=== PATIENT | male | born 1950 | race Caucasian/White ===

== ENCOUNTER 2016-05-30 15:39 | Emergency (ER) | payer OTHER ==
[2016-05-30] MEDS ORDERED: Acetaminophen TAB* 325 MG PO ONE (16:32)
[2016-05-30 16:51] LABS: Hematocrit 40 % (42-52); Hemoglobin 13.6 g/dl (14.0-18.0); Mean Corpuscular HGB Conc 34 g/dl (31-36); Mean Corpuscular Hemoglobin 30 pg (27-31); Mean Corpuscular Volume 90 fL (80-94); Mean Platelet Volume 8 um3 (7.4-10.4); Red Blood Count 4.49 10^6/ul (4.0-5.4); Red Cell Distribution Width 15 % (10.5-15); White Blood Count 6.3 10^3/ul (3.5-10.8)
[2016-05-30] MEDS: NS 0.9% 1000 ML* 3,000 ML IV ONE (16:55)
--- NOTE | 2016-05-30 17:03 | RAD ---
Indication: Cough, fever. 2 views of the chest including dual energy PA views demonstrates no mediastinal shift. Heart is of normal size and configuration. Lung hart are clear. When compared to previous exam of February 16, 2016 no significant change is noted. IMPRESSION: No active cardiopulmonary disease is identified.
[2016-05-30 17:13] LABS: Albumin 4.6 g/dL (3.2-5.2); BUN/Creatinine Ratio 14.9 (8-20); Calcium 9.2 mg/dL (8.6-10.3); EGFR African American 77.6 (>60); EGFR Non-African American 60.4 (>60); Globulin 2.8 g/dL (2-4); Potassium 3.9 mmol/L (3.5-5.0); Total Bilirubin 0.6 mg/dL (0.2-1.0); Total Protein 7.4 g/dL (6.4-8.9)
[2016-05-30 17:15] LABS: Troponin I 0.01 ng/mL (<0.04)
[2016-05-30 17:35] LABS: C Reactive Protein 51.58 mg/L (< 5.00)
[2016-05-30] MEDS ORDERED: Oseltamivir CAP* 75 MG PO ONE ×2 (18:04→18:05)
--- NOTE | 2016-05-30 18:13 | ED ---
Yudy Colunga Michael, scribed for Genaro Miller MD on 05/30/16 at 1638 . HPI Febrile Illness - HPI Summary HPI Summary: 65 y/o male comes to the ED presenting with a 101.3 fever that started one day ago at 1200. The fever gradually started and has been worsening since. The pt reports that Tylenol PM does not alleviate the fever. He notes the highest temperature was 102 and his last dose of Tylenol was at 0800. He also c/o a productive cough with green/yellow sputum, chills, decreased appetite, lower back pain, myalgia, and arthralgia. The pt denies rash, n/v/d, sore throat, neck pain, dysuria, sinus discomfort, diaphoresis, flank pain, and abd pain. The PMHx is significant for stage for lymphoma. He currently is not receiving radiation or chemotherapy. The pt did have Mohs surgery on the right side of his nose on 05/27/16. Today the wound was not purulent per patient. - History of Current Complaint Chief Complaint: EDFever Time Seen by Provider: 05/30/16 16:14 Hx Obtained From: Patient, Medical Records Onset/Duration: Started Days Ago, Still Present Time of Onset: 12:00 Timing: Constant Temperature: 101.3 F Initial Severity: Moderate Current Severity: Moderate Pain Intensity: 7 Pain Scale Used: 0-10 Numeric Aggravating Factors: Unknown Alleviating Factors: Nothing Associated Signs and Symptoms: Negative - rash, n/v/d, sore throat, neck pain, dysuria, sinus discomfort, diaphoresis, flank pain, and abd pain., Chills, Joint Pain, Myalgia, Other: - back pain. productive cough. decreased appetite. - Additional Pertinent History Primary Care Physician: [id number] - Allergy/Home Medications Allergies/Adverse Reactions: Allergies Allergy/AdvReac Type Severity Reaction Status Date / Time No Known Allergies Allergy Verified 05/30/16 15:45 PMH/Surg Hx/FS Hx/Imm Hx Endocrine/Hematology History: Reports: Other Endocrine/Hematological Disorders - Non-Hodgkins Lymphoma GI History: Reports: Other GI Disorders - Intestinal tumor, bowel resection Musculoskeletal History: Reports: Hx Arthritis - Rheumatoid arthritis Sensory History: Reports: Hx Contacts or Glasses Opthamlomology History: Reports: Hx Contacts or Glasses - Cancer History Cancer Type, Location and Year: Non-Hodgkins lymphoma Hx Chemotherapy: Yes - 2003-08 Hx Radiation Therapy: Yes - 2003-08 - Surgical History Surgery Procedure, Year, and Place: Bowel resection in 2002 Infectious Disease History: No Infectious Disease History: Denies: Traveled Outside the [place] in Last 30 Days - Family History Known Family History: Positive: Diabetes - mother Negative: Cardiac Disease - Social History Occupation: Employed Full-time Lives: With Family Alcohol Use: Occasionally Substance Use Type: Reports: None Smoking Status (MU): Former Smoker Have You Smoked in the Last Year: No Review of Systems Positive: Fever, Chills. Negative: Skin Diaphoresis Negative: Sore Throat Positive: Cough Positive: Other - decreased appetite. Negative: Abdominal Pain, Vomiting, Diarrhea, Nausea Negative: dysuria, flank pain Positive: Arthralgia, Myalgia Negative: Rash All Other Systems Reviewed And Are Negative: Yes Physical Exam - Summary Physical Exam Summary: The patient is well-nourished in no acute distress and in no acute pain. The skin is warm and dry and skin color reflects adequate perfusion. Good skin turgor. HEENT: The head is normocephalic and atraumatic. The pupils are equal and reactive. The conjunctivae are clear and without drainage. Nares are patent and without drainage. Mouth reveals dry mucous membranes and the throat is without erythema and exudate. The external ears are intact. The ear canals are patent and without drainage. The tympanic membranes are intact. Neck is supple with full range of motion and non-tender. There are no carotid bruits. There is no neck vein distension. Respiratory: Chest is non-tender. Mild rales in bases with more on the right. Cardiovascular: Heart is regular rate and rhythm. There is no murmur or rub auscultated. There is no peripheral edema and pulses are symmetrical and equal. Abdomen: The abdomen is soft and non-tender. There are normal bowel sounds heard in all four quadrants and there is no organomegaly palpated. Musculoskeletal: There is no back pain noted. Extremities are non-tender with full range of motion. There is good capillary refill. There is no peripheral edema or calf tenderness elicited. Neurological: Patient is alert and oriented to person, place and time. The patient has symmetrical motor strength in all four extremities. Psychiatric: The patient has an appropriate affect and does not exhibit any anxiety or depression. Triage Information Reviewed: Yes Vital Signs On Initial Exam: Initial Vitals Temp Pulse Resp BP Pulse Ox 101.3 F 92 17 154/72 97 05/30/16 15:40 05/30/16 15:40 05/30/16 15:40 05/30/16 15:40 05/30/16 15:40 Vital Signs Reviewed: Yes Diagnostics - Vital Signs Vital Signs Temp Pulse Resp BP Pulse Ox 05/30/16 15:40 101.3 F 92 17 154/72 97 - Laboratory Lab Results: Lab Results 05/30/16 05/30/16 05/30/16 Range/Units 16:35 16:35 16:35 WBC 6.3 (3.5-10.8) 10^3/ul RBC 4.49 (4.0-5.4) 10^6/ul Hgb 13.6 L (14.0-18.0) g/dl Hct 40 L (42-52) % MCV 90 (80-94) fL MCH 30 (27-31) pg MCHC 34 (31-36) g/dl RDW 15 (10.5-15) % Plt Count 107 L (150-450) 10^3/ul MPV 8 (7.4-10.4) um3 Neut % (Auto) 71.4 (38-83) % Lymph % (Auto) 18.5 L (25-47) % Miner % (Auto) 9.3 H (1-9) % Eos % (Auto) 0.1 (0-6) % Baso % (Auto) 0.7 (0-2) % Absolute Neuts (auto) 4.5 (1.5-7.7) 10^3/ul Absolute Lymphs (auto) 1.2 (1.0-4.8) 10^3/ul Absolute Monos (auto) 0.6 (0-0.8) 10^3/ul Absolute Eos (auto) 0 (0-0.6) 10^3/ul Absolute Basos (auto) 0 (0-0.2) 10^3/ul Absolute Nucleated RBC 0 10^3/ul Nucleated RBC % 0.1 INR (Anticoag Therapy) 1.03 (0.89-1.11) APTT 32.4 (26.0-36.3) seconds Sodium 129 L (133-145) mmol/L Potassium 3.9 (3.5-5.0) mmol/L Chloride 95 L (101-111) mmol/L Carbon Dioxide 27 (22-32) mmol/L Anion Gap 7 (2-11) mmol/L BUN 18 (6-24) mg/dL Creatinine 1.21 H (0.67-1.17) mg/dL Est GFR ( Amer) 77.6 (>60) Est GFR (Non-Af Amer) 60.4 (>60) BUN/Creatinine Ratio 14.9 (8-20) Glucose 97 (70-100) mg/dL Lactic Acid (0.5-2.0) mmol/L Calcium 9.2 (8.6-10.3) mg/dL Total Bilirubin 0.60 (0.2-1.0) mg/dL AST 30 (13-39) U/L ALT 36 (7-52) U/L Alkaline Phosphatase 68 (34-104) U/L Troponin I 0.01 (<0.04) ng/mL C-Reactive Protein 51.58 H (< 5.00) mg/L Total Protein 7.4 (6.4-8.9) g/dL Albumin 4.6 (3.2-5.2) g/dL Globulin 2.8 (2-4) g/dL Albumin/Globulin Ratio 1.6 (1-3) Influenza A (Rapid) (Negative) Influenza B (Rapid) (Negative) 05/30/16 05/30/16 Range/Units 16:35 17:24 WBC (3.5-10.8) 10^3/ul RBC (4.0-5.4) 10^6/ul Hgb (14.0-18.0) g/dl Hct (42-52) % MCV (80-94) fL MCH (27-31) pg MCHC (31-36) g/dl RDW (10.5-15) % Plt Count (150-450) 10^3/ul MPV (7.4-10.4) um3 Neut % (Auto) (38-83) % Lymph % (Auto) (25-47) % Miner % (Auto) (1-9) % Eos % (Auto) (0-6) % Baso % (Auto) (0-2) % Absolute Neuts (auto) (1.5-7.7) 10^3/ul Absolute Lymphs (auto) (1.0-4.8) 10^3/ul Absolute Monos (auto) (0-0.8) 10^3/ul Absolute Eos (auto) (0-0.6) 10^3/ul Absolute Basos (auto) (0-0.2) 10^3/ul Absolute Nucleated RBC 10^3/ul Nucleated RBC % INR (Anticoag Therapy) (0.89-1.11) APTT (26.0-36.3) seconds Sodium (133-145) mmol/L Potassium (3.5-5.0) mmol/L Chloride (101-111) mmol/L Carbon Dioxide (22-32) mmol/L Anion Gap (2-11) mmol/L BUN (6-24) mg/dL Creatinine (0.67-1.17) mg/dL Est GFR ( Amer) (>60) Est GFR (Non-Af Amer) (>60) BUN/Creatinine Ratio (8-20) Glucose (70-100) mg/dL Lactic Acid 1.0 (0.5-2.0) mmol/L Calcium (8.6-10.3) mg/dL Total Bilirubin (0.2-1.0) mg/dL AST (13-39) U/L ALT (7-52) U/L Alkaline Phosphatase (34-104) U/L Troponin I (<0.04) ng/mL C-Reactive Protein (< 5.00) mg/L Total Protein (6.4-8.9) g/dL Albumin (3.2-5.2) g/dL Globulin (2-4) g/dL Albumin/Globulin Ratio (1-3) Influenza A (Rapid) Positive H (Negative) Influenza B (Rapid) Negative (Negative) Result Diagrams: 05/30/16 16:35 05/30/16 16:35 Lab Statement: Any lab studies that have been ordered have been reviewed, and results considered in the medical decision making process. - Radiology CXR Xray Interpretation: No Acute Changes Radiology Interpretation Completed By: Radiologist Course/Dx - Febrile Illness Differential Diagnoses: Bacteremia, Cellulitis, Fever of Unknown Origin, Pneumonia, Other: - influenza - Diagnoses Provider Diagnoses: Influenza Discharge - Discharge Plan Condition: Stable Disposition: HOME Prescriptions: Oseltamivir CAP* [Tamiflu CAP*] 75 mg PO BID #8 cap Patient Education Materials: Influenza (ED) Referrals: Rupert Jorge DO [Primary Care Provider] - Additional Instructions: You will follow up with Dr. Jorge within the next 2-3 days. Return the the ED is your symptoms worsen. The documentation as recorded by the Yudy ramsey Michael accurately reflects the service I personally performed and the decisions made by me, Genaro Miller MD.
[2016-05-30 20:05] VITALS: BP 126/82
== END 2016-05-30 20:04 | disposition home or self-care (01) ==
LOC: ED 15:39
DX: J11.1 Influenza due to unidentified influenza virus with other respiratory manifestations (principal); Z87.891 Personal history of nicotine dependence; Z85.72 Personal history of non-Hodgkin lymphomas
CPT/HCPCS: 36415; 71020; 80053; 83605; 84484; 85025; 85610; 85730; 86140; 87040; 87502; 96360; 99284; A9270-GY

== ENCOUNTER 2017-07-15 01:21 | Emergency (ER) | payer MEDICARE, OTHER ==
[2017-07-15] MEDS ORDERED: NS 0.9% 1000 ML* 1,000 ML IV ONE ×2 (02:13→04:42)
[2017-07-15 04:15] LABS: EGFR Non-African American 76.5 (>60)
[2017-07-15] MEDS ORDERED: Iohexol 300* (CONTRAST) 10 ML SDV IV ONE (04:41)
[2017-07-15 07:19] LABS: ABS Basophils 0.1 10^3/ul (0-0.2); ABS Eosinophils 0 10^3/ul (0-0.6); ABS Lymphocytes 1.7 10^3/ul (1.0-4.8); ABS Monocytes 0.5 10^3/ul (0-0.8); ABS Neutrophils 9.2 10^3/ul (1.5-7.7); ABS Nucleated RBC 0 10^3/ul; Eosinophil % 0.3 % (0-6); Hematocrit 41 % (42-52); Hemoglobin 13.6 g/dl (14.0-18.0); Lymphocyte % 14.9 % (25-47); Mean Corpuscular HGB Conc 34 g/dl (31-36); Mean Corpuscular Hemoglobin 31 pg (27-31); Mean Corpuscular Volume 92 fL (80-94); Mean Platelet Volume 9 um3 (7.4-10.4); Nucleated Red Blood Cells % 0; Platelet Count 195 10^3/ul (150-450); Red Blood Count 4.41 10^6/ul (4.0-5.4); Red Cell Distribution Width 14 % (10.5-15); White Blood Count 11.6 10^3/ul (3.5-10.8)
[2017-07-15 08:33] VITALS: BP 125/68
--- NOTE | 2017-07-15 08:33 | RAD ---
INDICATION: Abdominal pain, assess for contrast in the large bowel. COMPARISON: Comparison is made with a prior CT of the abdomen and pelvis from July 15, 2017. TECHNIQUE: Supine and upright views of the abdomen were obtained. FINDINGS: There is a paucity of gas within the small bowel and colon limiting evaluation. The prior CT findings were most consistent with a partial small bowel obstruction. There are few scattered air-fluid levels which appear to be within the small bowel. There appears to be contrast within the ascending colon which is faintly visualized from the prior CT study. No free intraperitoneal air is seen. Contrast is noted within the kidneys ureters and bladder which appear unremarkable. IMPRESSION: LIMITED STUDY DUE TO PAUCITY OF BOWEL GAS. THE PREVIOUSLY NOTED SMALL BOWEL OBSTRUCTION IS BETTER ASSESSED ON THE PRIOR CT EXAM. THERE DOES APPEAR TO BE FAINT CONTRAST WITHIN THE ASCENDING COLON.
--- NOTE | 2017-07-15 08:35 | RAD ---
CLINICAL HISTORY: Abdominal pain and pressure. Relevant surgical history includes bowel resection in 2003. Medical history includes non-Hodgkin's pulmonary. COMPARISON: CT abdomen pelvis September 08, 2011 TECHNIQUE: Contrast enhanced CT examination of the abdomen and pelvis from the lung bases through the initial tuberosities. The patient received 134 mL Omnipaque 300 intravenously prior to imaging.The patient received oral contrast as well prior to imaging. FINDINGS: Unless otherwise specified comparisons below reference September 08, 2011 CT. VISUALIZED LUNG BASES: The visualized lung bases are grossly clear. There is no pleural effusion. ABDOMEN AND PELVIS: The liver is homogenously hypodense relative to the spleen. There are no focal suspicious liver masses. The spleen, pancreas and right adrenal gland are grossly normal in appearance. There is coarse calcification in the left adrenal gland similar to the previous CT examination consistent with a history of adrenal gland hemorrhage. There is hyperattenuating material in the dependent portion of the gallbladder most consistent with gallstones and/or sludge. The kidneys are normal in appearance without focal mass, calcification or signs of hydronephrosis. The oral contrast has progressed only as far as the proximal small bowel. More distally there are fluid filled loops of small bowel measuring up to 3.6 cm in diameter (image 80). There is questionable identification of a transition point at the low midline small bowel (axial image 74). There is questionable identification of the patient's diminutive appendix (coronal image 52). More distally the gas and stool-filled colon does not exhibit any obvious focal inflammatory change. There are scattered rectosigmoid diverticula. Depicted best on the coronal plane images there is trace mesenteric ascites (image 47) as well as tethering of the mesenteric root. There is no gross retroperitoneal or mesenteric lymphadenopathy. The pelvic viscera is normal in appearance. The abdominal aorta and iliac arteries are normal in course and diameter. Degenerative changes include multilevel loss of intervertebral disc height involving the lower thoracic and lumbar spine.There are no sinister bone lesions. IMPRESSION: 1. CT findings are most compatible with partial small bowel obstruction in the distal small bowel, potentially due to adhesions. An infectious or inflammatory etiology is considered less likely. 2. Likely hepatic steatosis. 3. Cholelithiasis without signs of biliary obstruction or acute inflammatory change. 4. 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 5. Additional chronic and degenerative changes described in body the report.
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
== END 2017-07-15 09:26 | disposition home or self-care (01) ==
LOC: ED 01:21
DX: K56.600 Partial intestinal obstruction, unspecified as to cause (principal); K80.20 Calculus of gallbladder without cholecystitis without obstruction; E86.0 Dehydration; Z85.72 Personal history of non-Hodgkin lymphomas; M06.9 Rheumatoid arthritis, unspecified; Z87.891 Personal history of nicotine dependence
CPT/HCPCS: 36415; 74019; 74177; 80053; 83690; 83880; 85025; 96360; 99282; Q9967

== ENCOUNTER 2017-07-20 11:45 | Inpatient (IN) | payer MEDICARE ==
[2017-07-20] MEDS ORDERED: Morphine INJ* 2 MG/ML 1 ML CARPUJECT IV PRN (13:28)
[2017-07-20] MEDS ORDERED: Ondansetron INJ* 2 MG/ML VIAL IV PRN (13:29)
--- NOTE | 2017-07-20 14:07 | RAD ---
HISTORY: Small bowel obstruction COMPARISONS: July 15, 2017, CT dated July 15, 2017 VIEWS: Frontal supine and upright views of the abdomen. FINDINGS: BOWEL: There is a nonspecific bowel gas pattern, with nondilated small bowel gas noted. The small bowel dilatation noted on the previous examination has decreased.. There is a large amount of stool within the colon. CALCULI: There are no abnormal calculi. BONES AND SOFT TISSUES: There are no osseous abnormalities. OTHER FINDINGS: The lung bases are clear. There is no subphrenic gas. IMPRESSION: 1. NONSPECIFIC BOWEL GAS PATTERN. THE DEGREE OF SMALL BOWEL DILATATION NOTED ON THE PREVIOUS CT EXAMINATION HAS DECREASED ACCOUNTING FOR DIFFERENCES IN TECHNIQUE. 2. LARGE AMOUNT OF STOOL THROUGHOUT THE COLON.
[2017-07-20] MEDS: NS 0.9% 1000 ML* 1,000 ML IV SCH (14:49)
[2017-07-20] MEDS: Enoxaparin(*) 40 MG/0.4 ML SYR SUBCUT SCH (14:49)
[2017-07-20 14:53] LABS: ABS Basophils 0 10^3/ul (0-0.2); ABS Eosinophils 0.1 10^3/ul (0-0.6); ABS Lymphocytes 2.2 10^3/ul (1.0-4.8); ABS Monocytes 0.7 10^3/ul (0-0.8); ABS Neutrophils 7.9 10^3/ul (1.5-7.7); ABS Nucleated RBC 0 10^3/ul; Eosinophil % 0.5 % (0-6); Hematocrit 38 % (42-52); Hemoglobin 12.8 g/dl (14.0-18.0); Mean Corpuscular HGB Conc 34 g/dl (31-36); Mean Corpuscular Hemoglobin 31 pg (27-31); Mean Corpuscular Volume 91 fL (80-94); Mean Platelet Volume 7.5 um3 (7.4-10.4); Nucleated Red Blood Cells % 0; Platelet Count 186 10^3/ul (150-450); Red Cell Distribution Width 15 % (10.5-15); White Blood Count 10.8 10^3/ul (3.5-10.8)
[2017-07-20 15:14] LABS: EGFR Non-African American 67.7 (>60)
[2017-07-21] MEDS: NS 0.9% 1000 ML* 1,000 ML IV SCH ×3 (00:48→23:00)
[2017-07-21 06:11] LABS: ABS Basophils 0 10^3/ul (0-0.2); ABS Eosinophils 0.1 10^3/ul (0-0.6); ABS Lymphocytes 2.1 10^3/ul (1.0-4.8); ABS Monocytes 0.4 10^3/ul (0-0.8); ABS Neutrophils 3.5 10^3/ul (1.5-7.7); ABS Nucleated RBC 0 10^3/ul; Eosinophil % 1.4 % (0-6); Hematocrit 34 % (42-52); Hemoglobin 11.6 g/dl (14.0-18.0); Lymphocyte % 34.3 % (25-47); Mean Corpuscular HGB Conc 34 g/dl (31-36); Mean Corpuscular Hemoglobin 32 pg (27-31); Mean Corpuscular Volume 92 fL (80-94); Mean Platelet Volume 7.6 um3 (7.4-10.4); Nucleated Red Blood Cells % 0.1; Platelet Count 159 10^3/ul (150-450); Red Blood Count 3.68 10^6/ul (4.0-5.4); Red Cell Distribution Width 14 % (10.5-15); White Blood Count 6.2 10^3/ul (3.5-10.8)
[2017-07-21 06:29] LABS: EGFR Non-African American 70.7 (>60)
--- NOTE | 2017-07-21 08:32 | PN ---
Progress Note - Progress Note Date of Service: 07/21/17 SOAP: Subjective: large, malodorous vomit last evening and felt better until 6 am this am when abdominal pain started to return. no nausea this am. very small amounts of gas from below. Objective: Vital Signs Temp Pulse Resp BP Pulse Ox 97.8 F 62 14 102/56 99 07/21/17 08:10 07/21/17 08:10 07/21/17 08:10 07/21/17 08:10 07/21/17 08:10 sitting up in nad perr eomi op moist CTA bl s1 s2 nl soft, min ttp throughout, significantly decreased bowel sounds no le edema A+O x3, grossly nonfocal Laboratory Results - last 24 hr 07/20/17 07/20/17 07/21/17 14:40 14:40 05:53 WBC 10.8 6.2 RBC 4.10 3.68 L Hgb 12.8 L 11.6 L Hct 38 L 34 L MCV 91 92 MCH 31 32 H MCHC 34 34 RDW 15 14 Plt Count 186 159 MPV 7.5 7.6 Neut % (Auto) 73.1 56.7 Lymph % (Auto) 20.0 L 34.3 Tripp % (Auto) 6.2 7.1 H Eos % (Auto) 0.5 1.4 Baso % (Auto) 0.2 0.5 Absolute Neuts (auto) 7.9 H 3.5 Absolute Lymphs (auto) 2.2 2.1 Absolute Monos (auto) 0.7 0.4 Absolute Eos (auto) 0.1 0.1 Absolute Basos (auto) 0 0 Absolute Nucleated RBC 0 0 Nucleated RBC % 0 0.1 Sodium 134 Potassium 3.7 Chloride 101 Carbon Dioxide 27 Anion Gap 6 BUN 25 H Creatinine 1.09 Est GFR ( Amer) 87.0 Est GFR (Non-Af Amer) 67.7 BUN/Creatinine Ratio 22.9 H Glucose 108 H Calcium 9.0 Total Bilirubin 0.70 AST 16 ALT 21 Alkaline Phosphatase 60 Total Protein 6.6 Albumin 4.0 Globulin 2.6 Albumin/Globulin Ratio 1.5 07/21/17 05:53 WBC RBC Hgb Hct MCV MCH MCHC RDW Plt Count MPV Neut % (Auto) Lymph % (Auto) Tripp % (Auto) Eos % (Auto) Baso % (Auto) Absolute Neuts (auto) Absolute Lymphs (auto) Absolute Monos (auto) Absolute Eos (auto) Absolute Basos (auto) Absolute Nucleated RBC Nucleated RBC % Sodium 137 Potassium 4.1 Chloride 106 Carbon Dioxide 27 Anion Gap 4 BUN 20 Creatinine 1.05 Est GFR ( Amer) 90.9 Est GFR (Non-Af Amer) 70.7 BUN/Creatinine Ratio 19.0 Glucose 93 Calcium 8.6 Total Bilirubin AST ALT Alkaline Phosphatase Total Protein Albumin Globulin Albumin/Globulin Ratio Enoxaparin Sodium (Lovenox(*)) 40 mg SUBCUT Q24H [facility] Last Admin: 07/20/17 14:49 Dose: 40 mg Sodium Chloride (Ns 0.9% 1000 Ml*) 1,000 mls @ 100 mls/hr IV PER RATE [facility] Last Admin: 07/21/17 00:48 Dose: 100 mls/hr Morphine Sulfate (Morphine Inj (Syringe)*) 2 mg IV Q3H PRN PRN Reason: PAIN - MILD Last Admin: 07/20/17 14:48 Dose: 2 mg Ondansetron HCl (Zofran Inj*) 4 mg IV Q4H PRN PRN Reason: NAUSEA Last Admin: 07/20/17 14:49 Dose: 4 mg Assessment: 67 yo M w remote DLBCL with no evidence of active disease, and prior small bowel obstructions of unclear etiology, admitted again with a small bowel obstruction. Plan: -cont NPO -can have ice chips -check abd XRAY today -if starts vomiting again will need NGT and surgical consultation -cont iv hydration -lovenox DVT prophylaxis full code
--- NOTE | 2017-07-21 13:46 | RAD ---
Indication: Small bowel obstruction. Abdominal pain. History of intestinal tumor previous bowel resection. Comparison: July 15, 2014 CT and July 20, 2017 abdomen radiograph. Technique: Supine view of the abdomen. Report: Interval decrease in size of the small bowel loops at the LEFT abdomen now measuring within normal limits. Moderate stool in the transverse and LEFT colon. Negative for rectal distention with stool. Calcifications at the LEFT epigastric region corresponding with scarring and dystrophic calcification at the LEFT adrenal gland on CT. Unremarkable soft tissue contours. IMPRESSION: Interval resolution of small bowel obstruction.
[2017-07-21] MEDS: Enoxaparin(*) 40 MG/0.4 ML SYR SUBCUT SCH (14:09)
[2017-07-22 06:16] LABS: ABS Basophils 0 10^3/ul (0-0.2); ABS Eosinophils 0.1 10^3/ul (0-0.6); ABS Lymphocytes 2.1 10^3/ul (1.0-4.8); ABS Monocytes 0.4 10^3/ul (0-0.8); ABS Neutrophils 3.9 10^3/ul (1.5-7.7); ABS Nucleated RBC 0 10^3/ul; Eosinophil % 1.2 % (0-6); Hematocrit 35 % (42-52); Hemoglobin 11.9 g/dl (14.0-18.0); Lymphocyte % 32.1 % (25-47); Mean Corpuscular HGB Conc 34 g/dl (31-36); Mean Corpuscular Hemoglobin 31 pg (27-31); Mean Corpuscular Volume 92 fL (80-94); Mean Platelet Volume 7.4 um3 (7.4-10.4); Nucleated Red Blood Cells % 0; Platelet Count 170 10^3/ul (150-450); Red Blood Count 3.85 10^6/ul (4.0-5.4); Red Cell Distribution Width 14 % (10.5-15); White Blood Count 6.5 10^3/ul (3.5-10.8)
[2017-07-22] MEDS: NS 0.9% 1000 ML* 1,000 ML IV SCH ×2 (08:38→19:35)
[2017-07-22] MEDS: Enoxaparin(*) 40 MG/0.4 ML SYR SUBCUT SCH (15:25)
[2017-07-23] MEDS: NS 0.9% 1000 ML* 1,000 ML IV SCH (05:09)
[2017-07-23 07:54] VITALS: BP 126/65
--- NOTE | 2017-07-23 14:06 | DS ---
CC: Rm Pascal MD; Dr. Rupert Jorge at [facility] DISCHARGE SUMMARY: DATE OF ADMISSION: 07/20/17. DATE OF DISCHARGE: 07/23/17. REASON FOR ADMISSION: Small bowel obstruction. HISTORY: Mr. Burns is a 67-year-old male with a history of diffuse large B-cell lymphoma stage IV , presenting with small bowel obstruction in 2002. 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 He had whole body radiation as part of the conditioni ng regimen. 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 He has done well over the last 8 years with the exception of now this being his fourth a dmission with small bowel obstructions. In August of 2011, twice in 2011, and then hospitalized in Dec with small bowel obstruction and developed sepsis with cultures positive for Klebsiella. On scans, there has been no evidence for any recurrence of lymphoma. On 07/15/17, the patient presented to [facility] ER with symptoms of small bowel obstructi on, but felt better after hydration, had a bowel movement, which was black and mostly liquid and then was discharged home. He had no vomiting at that time, although he had severe nausea. He did well o ezra the weekend, taking in small amount of oral nutrition including yogurt, worked and felt well on 0 07/18/17. The morning prior to admission, was awakened from sleep with pain and had vomiting. It abena eared as though it is coffee ground although in retrospect or even potentially has been feculent give n its malodorous nature. The patient continued to do poorly with severe abdominal pain, which he rat ed an 12/09, unable to take in liquids and presented to the office at [facility] where he was s een, evaluated and a decision made to admit. HOSPITAL COURSE: The patient was admitted to the hospital, placed on n.p.o. status and had IV fluids , p.r.n. medications for nausea and for pain. Within 48 hours, his symptoms are markedly improved. His diet was slowly advanced. He started having gas per rectum and also small bowel movements. Imaging studies had included CT scan performed 4 days prior to admission when he was seen here in the emergency room on 07/15/17 which showed partial small bowel obstruction in the distal small bowel li christina due to adhesions, cholelithiasis. Plain films of the abdomen on 07/15/17 were similar; on , there was still likelihood of small bowel obstruction on the films, although it did seem to be im proved with nonspecific pattern, still with some bowel dilatation, but decreased. By the time of 07/01 06/19, no further bowel obstruction or dilated bowel was noted. LABORATORY STUDIES: During the hospitalization, included just some mild anemia with hemoglobin runni ng in the 11.5 to 12 range, normal white count, normal platelet count. Chemistry studies without kevin or abnormalities including normal renal and hepatic function and electrolytes. DISCHARGE DIAGNOSES: 1. Small bowel obstruction, likely secondary to adhesions. 2. Prior diffuse large B-cell lymphoma, status post both autologous and allogeneic transplant with s ignificant GVHD in the past. 3. Gastroesophageal reflux disease. MEDICATIONS AT THE TIME OF DISCHARGE: Include: 1. Synthroid 0.75 mg daily. 2. P.r.n. tramadol from the previous ER visit, although not likely to need this any significant amou nt. 3. Prevacid 20 mg daily. [id number]/[facility] #: [id number]
== END 2017-07-23 11:50 | disposition home or self-care (01) | DRG 390 ==
LOC: MED 11:46
PROVIDERS: ADMIT Internal Medicine Hematology & Oncology; ATTEND Internal Medicine Hematology & Oncology
DX: K56.51 Intestinal adhesions [bands], with partial obstruction (principal); E03.9 Hypothyroidism, unspecified; K21.9 Gastro-esophageal reflux disease without esophagitis; Z79.1 Long term (current) use of non-steroidal anti-inflammatories (NSAID); Z79.899 Other long term (current) drug therapy; Z85.72 Personal history of non-Hodgkin lymphomas
CPT/HCPCS: 36415; 74018; 74019; 80048; 80053; 82272; 82553; 85025; 99223; 99232; 99238; J1650; J2270; J2405

== ENCOUNTER 2019-05-16 17:00 | Inpatient (IN) | payer MEDICAID, MEDICARE ==
[2019-05-16] MEDS ORDERED: NS 0.9% 1000 ML** 1,000 ML IV ONE ×3 (18:39→23:11)
--- NOTE | 2019-05-16 18:39 | ED ---
GI/ HPI - HPI Summary HPI Summary: 68 y/o male presented to [facility] with an episode of emesis and bloating that began between 1999 and 2100 yesterday 05/15/19. Pt has experienced experiencing cramping and diaphoresis (which resolved), cannot urinate or defecate, and his vomit is dark. His last normal BM was today 05/16/19 at 0100 and he last ate yesterday at 1800. Since 2002 he has had 6-7 of these episodes as a result of scar tissue from tomors that were present in his GI tract, and the episodes usually resolve. He has had 3 bone marrow transplants as well as chemotherapy and radiation. He sees Dr. Pascal. - History of Current Complaint Chief Complaint: EDAbdPain Time Seen by Provider: 05/16/19 18:15 Stated Complaint: VOMITING/UNABLE TO URINATE PER PT Hx Obtained From: Patient Onset/Duration: Started Hours Ago, Still Present Current Severity: Severe Pain Intensity: 8 Pain Characteristics: Cramping Associated Signs and Symptoms: Positive: Vomiting - dark, Constipation, Diaphoresis, Abdominal Pain - cramping, Other: - decreased oral intake, no urination Aggravating Factor(s): Food - Additional Pertinent History Primary Care Physician: [id number] - Allergy/Home Medications Allergies/Adverse Reactions: Allergies Allergy/AdvReac Type Severity Reaction Status Date / Time No Known Allergies Allergy Verified 05/16/19 17:04 Home Medications: Home Medications Albuterol inh POWDER (NF) [Proair Respiclick] 2 puff INH Q4HR PRN 05/16/19 [ History Confirmed 05/16/19] Fenofibrate,Micronized [Fenofibrate] 67 mg PO DAILY 05/16/19 [History Confirmed 05/16/19] Ibuprofen TAB* [Advil TAB*] 200 - 400 mg PO TID PRN 05/16/19 [History Confirmed 05/16/19] Lansoprazole CAP (NF) [Prevacid CAP (NF)] 30 mg PO DAILY 05/16/19 [History Confirmed 05/16/19] Levothyroxine TAB* [Synthroid TAB*] 125 mcg PO DAILY 05/16/19 [History Confirmed 05/16/19] PMH/Surg Hx/FS Hx/Imm Hx Endocrine/Hematology History: Reports: Other Endocrine/Hematological Disorders - Non-Hodgkins Lymphoma GI History: Reports: Other GI Disorders - Intestinal tumor, bowel resection Musculoskeletal History: Reports: Hx Arthritis - Rheumatoid arthritis Sensory History: Reports: Hx Contacts or Glasses, Hx Hearing Problem Denies: Hx Hearing Aid, Other Sensory Impairments Opthamlomology History: Reports: Hx Contacts or Glasses Denies: Other Sensory Impairments - Cancer History Cancer Type, Location and Year: Non-Hodgkins lymphoma Hx Chemotherapy: Yes - 2003-08 Hx Radiation Therapy: Yes - 2003-08 - Surgical History Surgery Procedure, Year, and Place: Bowel resection in 2002 Hx Anesthesia Reactions: No - Immunization History Date of Tetanus Vaccine: 2017 Date of Influenza Vaccine: 06/19 Infectious Disease History: Yes Infectious Disease History: Denies: Traveled Outside the [place] in Last 30 Days - Family History Known Family History: Positive: Diabetes - mother Negative: Cardiac Disease - Social History Alcohol Use: Weekly Alcohol Amount: 1 beer five times a week Substance Use Type: Reports: Marijuana Substance Use Comment - Amount & Last Used: once a month, last three weeks ago Smoking Status (MU): Former Smoker Have You Smoked in the Last Year: No Review of Systems Positive: Skin Diaphoresis - resolved Positive: Abdominal Pain - cramping, Vomiting - dark, Other - decreased oral intake, constipation. Negative: Diarrhea Positive: other - no urination All Other Systems Reviewed And Are Negative: Yes Physical Exam - Summary Physical Exam Summary: Constitutional: Well-developed, Well-nourished, Alert. (-) Distressed Skin: Warm, Dry HENT: Normocephalic; Atraumatic Eyes: Conjunctiva normal Neck: Musculoskeletal ROM normal neck. (-) JVD, (-) Stridor, (-) Tracheal deviation Cardio: Rhythm regular, rate normal, Heart sounds normal; Intact distal pulses; The pedal pulses are 2+ and symmetric. Radial pulses are 2+ and symmetric. (-) Murmur Pulmonary/Chest wall: Effort normal. (-) Respiratory distress, (-) Wheezes, (-) Rales Abd: Soft, (+) tenderness throughout, (+) mild distension, (-) Guarding, (-) Rebound, positive bowel sounds Musculoskeletal: (-) Edema Lymph: (-) Cervical adenopathy Neuro: Alert, Oriented x3 Psych: Mood and affect Normal Triage Information Reviewed: Yes Vital Signs On Initial Exam: Initial Vitals Temp Pulse Resp BP Pulse Ox 97 F 92 15 113/91 99 01/15/20 17:03 05/16/19 17:03 05/16/19 17:03 05/16/19 17:03 05/16/19 17:03 Vital Signs Reviewed: Yes Procedures - Sedation Patient Received Moderate/Deep Sedation with Procedure: No Diagnostics - Vital Signs Vital Signs Temp Pulse Resp BP Pulse Ox 05/16/19 18:12 79 128/72 98 05/16/19 18:07 85 98 05/16/19 17:03 97 F 92 15 113/91 99 - Laboratory Result Diagrams: 05/16/19 18:44 05/16/19 18:44 Lab Statement: Any lab studies that have been ordered have been reviewed, and results considered in the medical decision making process. - CT abd/pel CT Interpretation Completed By: Radiologist Summary of CT Findings: IMPRESSION: 1. Evidence of distal small bowel obstruction with pelvic transition point,. similarly located when compared to prior study, with mild mesenteric stranding. No evidence of perforation. 2. Cholelithiasis. 3. Diverticulosis coli. No evidence of diverticulitis. 4. Hiatal hernia. Other nonemergent findings as above. This report was reviewed by the ED physician. GIGU Course/Dx - Course Course Of Treatment: 68 y/o male presented to [facility] with an episode of emesis and bloating that began between 1999 and 2100 yesterday 05/15/19. Pt has experienced experiencing cramping and diaphoresis (which resolved), cannot urinate or defecate, and his vomit is dark. His last normal BM was today at 0100 and he last ate yesterday at 1800. Since 2002 he has had 6-7 of these episodes as a result of scar tissue from tomors that were present in his GI tract, and the episodes usually resolve. Exam found abdominal tenderness and mild distension. Bloodwork showed WBC H, Hct L, MCH H, abs neuts H, Cl L, creatinine H, and Glc H. ABD/PEL CT IMPRESSION: 1. Evidence of distal small bowel obstruction with pelvic transition point,. similarly located when compared to prior study, with mild mesenteric stranding. No evidence of perforation. 2. Cholelithiasis. 3. Diverticulosis coli. No evidence of diverticulitis. 4. Hiatal hernia. Other nonemergent findings as above. Pt was given 125ml IV Iohexanol and 2L IV NaCl. Pt was diagnosed with SBO and admitted to [facility] by Dr. Tavares. - Diagnoses Provider Diagnoses: SBO (small bowel obstruction) - Physician Notifications Discussed Care Of Patient With: Kiera Tavares Time Discussed With Above Provider: 22:25 Instructed by Provider To: Other - Pt case was discussed with Dr. Tavares, who will admit the pt. Dr. Leavitt will see the pt in the morning. Discharge ED - Sign-Out/Discharge Documenting (check all that apply): Patient Departure - admit - Discharge Plan Condition: Stable Disposition: ADMITTED TO [facility] Referrals: Rupert Jorge, [Primary Care Provider] - - Attestation Statements Document Initiated by Scribe: Yes Documenting Scribe: Maicol Holley Provider For Whom Monroeibe is Documenting (Include Credential): Abdiel Wiggins Scribe Attestation: Maicol Colunga, scribed for Abdiel Wiggins on 05/16/19 at 2236. Status of Scribe Document: Ready
[2019-05-16 18:56] LABS: ABS Basophils 0.1 10^3/ul (0-0.2); ABS Lymphocytes 1.7 10^3/ul (1.0-4.8); ABS Monocytes 0.6 10^3/ul (0-0.8); ABS Neutrophils 9.1 10^3/ul (1.5-7.7); Eosinophil % 0.3 %; Hematocrit 41 % (42-52); Hemoglobin 14.7 g/dL (14.0-18.0); Lymphocyte % 14.5 %; Mean Corpuscular HGB Conc 36 g/dL (31-36); Mean Corpuscular Hemoglobin 33 pg (27-31); Mean Corpuscular Volume 92 fL (80-94); Mean Platelet Volume 8.3 fL (7.4-10.4); Platelet Count 201 10^3/uL (150-450); Red Cell Distribution Width 14 % (10-15); White Blood Count 11.4 10^3/uL (3.5-10.8)
[2019-05-16 19:06] LABS: Albumin 4.7 g/dL (3.2-5.2); Albumin/Globulin Ratio 1.8 (1-3); Calcium 10.2 mg/dL (8.6-10.3); EGFR African American 64.9 (>60); EGFR Non-African American 53.6 (>60); Globulin 2.6 g/dL (2-4); Potassium 4.4 mmol/L (3.5-5.0); Total Bilirubin 0.7 mg/dL (0.2-1.0); Total Protein 7.3 g/dL (6.4-8.9)
[2019-05-16] MEDS ORDERED: Iodixanol* (CONTRAST) 320 MG/ML 100 ML SDV IV ONE (19:36)
[2019-05-16] MEDS ORDERED: NS 0.9% 1000 ML** 1,000 ML IV SCH (23:00)
[2019-05-16] MEDS ORDERED: Albuterol HFA INHALER* 8 gm MDI INH PRN (23:00)
[2019-05-16] MEDS ORDERED: Ondansetron INJ* 2 MG/ML VIAL IV PRN (23:00)
[2019-05-16] MEDS ORDERED: Morphine INJ* 2 MG/ML 1 ML SYRINGE (TWO MG - NEW SYRINGE VERSION) IV PRN (23:01)
--- NOTE | 2019-05-17 05:03 | HP ---
CC: Dr. Rupert Jorge; Dr. Rm Pascal * HISTORY AND PHYSICAL: DATE OF ADMISSION: 05/16/19 PRIMARY CARE PHYSICIAN: Dr. Rupert Jorge. PRIMARY ONCOLOGIST: Dr. Rm Pascal. CHIEF COMPLAINT: Bloating, abdominal pain, emesis. HISTORY OF PRESENT ILLNESS: This is a 68-year-old male with past medical history of lymphoma status post allogenic bone transplant about 15 years ago, history of intestinal tumor status post removal several years ago in 2002, small bowel obstruction, who now presents to the emergency room because of abdominal pain. The patient has been having abdominal pain since yesterday evening after dinner time, described as a pressure sensation associated with bloating and vomiting. His reports that the patient has about a gallon of vomitus in the past 24 hours. There has been no blood in the vomiting. The patient reports that his last bowel movement was earlier this morning at 1 a.m. ; however, he reports that this bowel movement was small amount and did not relieve him like he expected it to, and he remained bloated and continued to have emesis throughout the day. So, he decided to come to the emergency room. His symptoms are associated with chills; however, there is no fever. In the emergency room, the patient was seen and evaluated, was given IV fluids. CT of the abdomen was done, which revealed small bowel obstruction. General surgery Dr. Leavitt was contacted, who will see the patient as a consult and subsequently the hospitalist service was contacted. PAST MEDICAL HISTORY: 1. Lymphoma status post allogenic bone marrow transplant 15 years ago. 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 3. History of GERD. 4. History of hypothyroidism. 5. History of small bowel obstruction. PAST SURGICAL HISTORY: Resection of an intestinal tumor in 2002. MEDICATIONS: Home medications include: 1. Albuterol inhaler as needed. 2. Levothyroxine 125 mcg daily. 3. Esomeprazole 50 mg daily. 4. Fenofibrate 67 mg daily. ALLERGIES: No known drug allergies. FAMILY HISTORY: Mother due to old age at age 87. Father lived until age 97. SOCIAL HISTORY: The patient is and lives with his . He does not smoke, will have occasional alcohol use. REVIEW OF SYSTEMS: He does not have any fevers; however, he is reporting chills. He does not have any sore throat, no headaches, no chest pain, no shortness of breath, no cough, no palpitations, gastrointestinal symptoms as above. No urinary symptoms. Otherwise, the full review of system was done and it is negative, otherwise as listed in the HPI. PHYSICAL EXAMINATION GENERAL: This is a well-developed, well-nourished male, lying in the ER stretcher, in no acute distress. VITAL SIGNS: Blood pressure is 160/80, heart rate of 75, respiratory rate of 14 , oxygenation of 99% on room air, temperature of 97 degree Fahrenheit. HEENT: Pupils are equal, round, reactive to light. Atraumatic, normocephalic. Oral mucosa is moist, no nystagmus. LYMPHATICS: There is no cervical or supraclavicular lymphadenopathy. LUNGS: There is no use of accessory muscles. Lungs are clear without any wheezing, rales, or rhonchi. HEART: There is no lower extremity edema. Dorsalis pedis is 2+ bilaterally. S1, S2 normal. Regular rate and rhythm. No murmurs, rubs, or gallops. ABDOMEN: Abdomen is soft, has moderate distention, hypoactive bowel sounds. Has generalized mild tenderness. MUSCULOSKELETAL: There is no clubbing, cyanosis, or edema. Full range of motion is noted at the knees bilaterally. NEUROLOGIC: Tongue is midline, there is no facial droop. Speech is clear and coherent. He is moving all 4 extremities. PSYCH: He is awake, oriented x3. He is calm and cooperative. SKIN: There are no rashes or lesions. DIAGNOSTIC STUDIES/LAB DATA: White cell count of 11.4, hemoglobin of 14.7, hematocrit of 41, MCH of 33, platelets of 201. Sodium of 137, potassium of 4.4 , chloride of 99, bicarb of 29, BUN 24, creatinine of 1.33, glucose of 120. AST of 23, ALT of 29, total bilirubin of 0.70, calcium of 10.2, alkaline phosphatase is 60, total protein 7.3, albumin 4.7, and BUN of 2.3. The patient had a CT of the abdomen and pelvis done: Evidence of distal small bowel obstruction with pelvic transition point similarly located when compared to the prior study with mild mesenteric stranding. No evidence of perforation, cholelithiasis, diverticulosis coli with no evidence of diverticulitis. There is a hiatal hernia. There is no free intraperitoneal air. IMPRESSION AND PLAN: 1. Small bowel obstruction: General surgery has been consulted. I will start the patient on NG tube with intermittent suction. N.p.o. except for ice chips, IV fluids, and pain control. 2. History of gastroesophageal reflux disease with hiatal hernia: Pantoprazole IV has been started. 3. History of unspecified hypothyroidism: I have changed his levothyroxine to IV dose. 4. Code status: Full code. Healthcare proxy is his . 5. DVT prophylaxis: Sequential compression device. We will avoid starting him on any pharmacological agents at this point due to he may require surgery for his small bowel obstruction. [id number]/[facility] #: [id number] [place]
[2019-05-17] MEDS ORDERED: Levothyroxine INJ* 100 MCG/5 ML VIAL IV SCH (06:00)
[2019-05-17] MEDS ORDERED: Pantoprazole IV* 40 MG IV ONE (06:00)
[2019-05-17] MEDS ORDERED: Morphine INJ* 2 MG/ML 1 ML SYRINGE (TWO MG - NEW SYRINGE VERSION) IV ONE (06:00)
[2019-05-17 06:10] LABS: ABS Eosinophils 0.1 10^3/ul (0-0.6); ABS Lymphocytes 2.1 10^3/ul (1.0-4.8); ABS Monocytes 0.9 10^3/ul (0-0.8); Eosinophil % 0.6 %; Hematocrit 37 % (42-52); Hemoglobin 12.7 g/dL (14.0-18.0); Lymphocyte % 20.8 %; Mean Corpuscular HGB Conc 34 g/dL (31-36); Mean Corpuscular Hemoglobin 32 pg (27-31); Mean Corpuscular Volume 93 fL (80-94); Mean Platelet Volume 7.7 fL (7.4-10.4); Platelet Count 181 10^3/uL (150-450); Red Blood Count 4.02 10^6 /uL (4.18-5.48); Red Cell Distribution Width 14 % (10-15); White Blood Count 10.1 10^3/uL (3.5-10.8)
[2019-05-17 06:29] LABS: BUN/Creatinine Ratio 23.5 (8-20); Calcium 8.5 mg/dL (8.6-10.3); EGFR African American 76.8 (>60); EGFR Non-African American 63.4 (>60); Potassium 4.5 mmol/L (3.5-5.0)
[2019-05-17] MEDS ORDERED: Morphine INJ* 2 MG/ML 1 ML SYRINGE (TWO MG - NEW SYRINGE VERSION) IV PRN (07:00)
--- NOTE | 2019-05-17 07:22 | PN ---
Subjective Date of Service: 05/17/19 Interval History: Pt admitted overnight for SBO. Declined NGT after initial attempt caused vomiting. Had liquid BMs overnight, which appears to be baseline when this patient experiences SBOs (now fifth admission). This morning he reports feeling well and back to baseline. Would like to eat. Denies n/v or abdominal pain. Objective Active Medications: Albuterol (Ventolin Hfa Inhaler*) 2 puff INH Q4H PRN PRN Reason: SHORTNESS OF BREATH Sodium Chloride (Ns 0.9% 1000 Ml) 1,000 mls @ 100 mls/hr IV PER RATE [facility] Last Admin: 05/17/19 01:45 Dose: 100 mls/hr Levothyroxine Sodium (Synthroid Inj*) 62.5 mcg IV 0600 [facility] Last Admin: 05/17/19 06:07 Dose: 62.5 mcg Morphine Sulfate (Morphine Inj (Syringe))*) 2 mg IV Q6H PRN PRN Reason: PAIN - SEVERE Ondansetron HCl (Zofran Inj*) 4 mg IV Q6H PRN PRN Reason: NAUSEA Pantoprazole Sodium (Protonix Iv*) 40 mg IV DAILY [facility] Vital Signs - 8 hr 05/16/19 05/16/19 05/17/19 23:21 23:49 00:29 Temperature Pulse Rate 79 75 76 Respiratory Rate Blood Pressure 125/68 (mmHg) O2 Sat by Pulse 98 97 96 Oximetry 05/17/19 05/17/19 05/17/19 00:30 00:42 01:16 Temperature 97.8 F 98.6 F Pulse Rate 81 83 80 Respiratory 18 18 Rate Blood Pressure 154/72 124/58 (mmHg) O2 Sat by Pulse 88 95 99 Oximetry 05/17/19 05/17/19 05/17/19 01:20 03:57 06:13 Temperature 97.8 F Pulse Rate 74 Respiratory 18 17 20 Rate Blood Pressure 124/62 (mmHg) O2 Sat by Pulse 100 Oximetry 05/17/19 06:32 Temperature Pulse Rate Respiratory 18 Rate Blood Pressure (mmHg) O2 Sat by Pulse Oximetry Oxygen Devices in Use Now: None Appearance: well appearing man in NAD, very pleasant Eyes: No Scleral Icterus Ears/Nose/Mouth/Throat: Clear Oropharnyx, Mucous Membranes Moist Neck: NL Appearance and Movements; NL JVP, Trachea Midline Respiratory: Symmetrical Chest Expansion and Respiratory Effort, Clear to Auscultation Cardiovascular: NL Sounds; No Murmurs; No JVD, RRR Abdominal: NL Sounds; No Tenderness; No Distention, No Hepatosplenomegaly Extremities: No Edema Skin: No Rash or Ulcers Neurological: Alert and Oriented x 3 Result Diagrams: 05/17/19 06:04 05/17/19 06:04 Assess/Plan/Problems-Billing Assessment: 68M with diffuse large B-cell lymphoma, stage IV, s/p chemo, radiation, and bone marrow transplant, with history of GVHD and 4 prior admissions for SBO and one complicated by klebsiella enteritis and bacteremia, presents again with SBO. - Patient Problems (1) SBO (small bowel obstruction) Comment: likely resolved after admission - start on diet - cont IVF for now
[2019-05-17 12:02] VITALS: BP 131/56
--- NOTE | 2019-05-18 00:05 | DS ---
CC: Dr. Rupert Jorge; Dr. Rm Pascal * DISCHARGE SUMMARY: DATE OF ADMISSION: 05/16/19 DATE OF DISCHARGE: 05/17/19 PRIMARY CARE PHYSICIAN: Dr. Rupert Jorge. ONCOLOGIST: Dr. Rm Pascal. PRIMARY DIAGNOSIS: Small bowel obstruction. SECONDARY DIAGNOSES: 1. Hypothyroidism. 2. Gastroesophageal reflux disease. DISCHARGE MEDICATIONS: 1. Lansoprazole 30 mg daily. 2. Fenofibrate 67 mg daily. 3. Ibuprofen 200 to 400 mg 3 times a day as needed for pain. 4. Levothyroxine 125 mcg daily. 5. Albuterol 2 puffs every 4 hours as needed for shortness of breath. HISTORY OF PRESENT ILLNESS: Mr. Burns is a 68-year-old man with a history of diffuse large B cell lymphoma in remission. He was stage IV and diagnosed by SBO from lymphoma. He has received chemotherapy, radiation, bone marrow transplant and has a history of graft vs host disease, but largely for the last several years, he has had admissions only for small bowel obstruction. Most recently, 2 years ago was complicated by klebsiella enteritis with bacteremia. The patient reports that he was in his usual state of health until day prior to presentation in the evening after dinner time, he described a pressure sensation associated with bloating and vomiting. The reports the patient has had about 1 gallon of vomitus in the last 24 hours without blood. The patient reports his last bowel movement was earlier that morning, overnight. The patient remained vomiting and continued to have emesis throughout the day so he presented to the emergency room. He denies fever, but thinks he has had chills. He states he has had this several times before and has presented to the ER for hydration, but has not needed intervention. HOSPITAL COURSE: In the emergency room, the patient was given IV fluids. The CT abdomen showed small bowel obstruction. The hospitalist service was consulted for admission overnight and NG tube was attempted, but it produced significant emesis in the patient, so he declined further attempts. By the morning time, the patient was having dark liquid bowel movements and has nausea , vomiting and abdominal pain resolved. He reports he always has very dark bowel movements and coffee-ground emesis when he gets SBOs and that these symptoms self-resolve when the abdominal pain and SBO resolve. The patient was requesting oatmeal and yogurt which he tolerated well. His creatinine which was mildly elevated on admission returned to normal after fluids and the patient was discharged home to follow up with his outpatient providers. PERTINENT STUDIES: CBC notable for leukocytosis to 11.4 which resolved after fluids. Hemoglobin 12.7 after fluids which was near the patient's baseline. CMP unremarkable. Abdomen and pelvis CT with evidence of distal small bowel obstruction with pelvic transition point similarly located when compared to prior study from July 2007 with mild mesenteric stranding. No evidence of perforation, cholelithiasis, diverticulosis. No evidence of diverticulitis, hiatal hernia. DISCHARGE PLAN: The patient will be discharged to follow up with his primary care physician and at their discretion he may need a referral to GI versus Surgery for recurrent small bowel obstructions. The patient can continue all of his home medications as before without significant changes, although is advised that he eventually taper off his proton pump inhibitor, to be tested for H. pylori if he has not been tested already and to pursue lifestyle changes and reduction in NSAIDs use for reflux symptom control. He should eat a healthy diet low in processed foods and resume activity as tolerated. DISPOSITION: Home. CONDITION ON DISCHARGE: Good. TIME SPENT: Approximately 60 minutes were spent on the discharge of this patient, more than half of which was spent with care coordination at bedside for interview and exam. [id number]/[facility] #: [id number] [place]
[2019-05-18] MEDS ORDERED: Pantoprazole IV* 40 MG IV SCH (09:00)
== END 2019-05-17 14:00 | disposition home or self-care (01) | DRG 389 ==
LOC: ED 17:00 → SSU 22:59
PROVIDERS: ADMIT Internal Medicine; ATTEND Internal Medicine
DX: K56.609 Unspecified intestinal obstruction, unspecified as to partial versus complete obstruction (principal); Z94.81 Bone marrow transplant status; E03.9 Hypothyroidism, unspecified; R94.4 Abnormal results of kidney function studies; K21.9 Gastro-esophageal reflux disease without esophagitis; M06.9 Rheumatoid arthritis, unspecified; H91.90 Unspecified hearing loss, unspecified ear; Z79.890 Hormone replacement therapy; Z79.899 Other long term (current) drug therapy; Z85.72 Personal history of non-Hodgkin lymphomas; Z28.21 Immunization not carried out because of patient refusal; Z87.891 Personal history of nicotine dependence
CPT/HCPCS: 36415; 74177; 80048; 80053; 85025; 99284; A9270-GY; J2270; Q9967

== ENCOUNTER 2020-07-05 22:35 | Inpatient (IN) ==
[2020-07-06] MEDS ORDERED: Ondansetron 4 mg VIAL 2 MG/ML 2 ml VIAL IV ONE (00:43)
[2020-07-06] MEDS ORDERED: Morphine 4 MG/ML VIAL (1 ml) IV ONE (00:43)
[2020-07-06 01:11] LABS: ABS Lymphocytes 0.8 10^3/ul (1.0-4.8); ABS Monocytes 0.6 10^3/ul (0-0.8); ABS Neutrophils 10.7 10^3/ul (1.5-7.7); Eosinophil % 0.1 %; Hematocrit 43 % (42-52); Hemoglobin 14.7 g/dL (14.0-18.0); Lymphocyte % 6.9 %; Mean Corpuscular HGB Conc 34 g/dL (31-36); Mean Corpuscular Hemoglobin 32 pg (27-31); Mean Corpuscular Volume 94 fL (80-94); Mean Platelet Volume 8.2 fL (7.4-10.4); Platelet Count 206 10^3/uL (150-450); Red Blood Count 4.61 10^6 /uL (4.18-5.48); Red Cell Distribution Width 14 % (10-15); White Blood Count 12.3 10^3/uL (3.5-10.8)
[2020-07-06 01:25] LABS: Albumin 4.9 g/dL (3.2-5.2); Albumin/Globulin Ratio 1.6 (1-3); C Reactive Protein 8.99 mg/L (<8.01); Calcium 10.6 mg/dL (8.6-10.3); EGFR African American 71.3 (>60); EGFR Non-African American 58.9 (>60); Potassium 3.9 mmol/L (3.5-5.0); Total Bilirubin 0.8 mg/dL (0.2-1.0); Total Protein 7.9 g/dL (6.4-8.9)
[2020-07-06] MEDS ORDERED: NS 0.9% 1000 ml BAG 2,000 ML IV ONE (01:59)
[2020-07-06] MEDS ORDERED: Iodixanol (CONTRAST) 320 MG/ML 100 ML SDV IV ONE (02:16)
[2020-07-06] MEDS: Morphine 4 MG/ML VIAL (1 ml) IV PRN ×2 (03:39→05:10)
[2020-07-06] MEDS ORDERED: Ondansetron 4 mg VIAL 2 MG/ML 2 ml VIAL IV PRN (05:07)
[2020-07-06] MEDS: NS 0.9% 1000 ml BAG 1,000 ML IV SCH ×2 (08:57→15:53)
[2020-07-06 09:26] LABS: Urine Appearance Clear; Urine Bilirubin Negative (Negative); Urine Blood Negative (Negative); Urine Color Yellow; Urine Glucose Negative (Negative); Urine Ketones Negative (Negative); Urine Nitrite Negative (Negative); Urine Protein Negative (Negative); Urine Urobilinogen Negative (Negative)
[2020-07-06] MEDS: Levothyroxine 100 MCG/5 ML VIAL IV SCH (10:16)
[2020-07-06] MEDS: Pantoprazole VIAL 40 MG VIAL IV SCH (10:17)
[2020-07-06] MEDS ORDERED: NS 0.9% 1000 ml BAG 1,000 ML IV SCH (18:48)
[2020-07-07] MEDS: Levothyroxine 100 MCG/5 ML VIAL IV SCH (05:29)
[2020-07-07] MEDS: Pantoprazole VIAL 40 MG VIAL IV SCH (05:32)
[2020-07-07 06:07] LABS: ABS Eosinophils 0.1 10^3/ul (0-0.6); ABS Lymphocytes 1.4 10^3/ul (1.0-4.8); ABS Monocytes 0.5 10^3/ul (0-0.8); ABS Neutrophils 4.3 10^3/ul (1.5-7.7); Hematocrit 36 % (42-52); Hemoglobin 12.1 g/dL (14.0-18.0); Lymphocyte % 22.7 %; Mean Corpuscular HGB Conc 34 g/dL (31-36); Mean Corpuscular Hemoglobin 32 pg (27-31); Mean Corpuscular Volume 95 fL (80-94); Mean Platelet Volume 8.4 fL (7.4-10.4); Platelet Count 148 10^3/uL (150-450); Red Blood Count 3.79 10^6 /uL (4.18-5.48); Red Cell Distribution Width 15 % (10-15); White Blood Count 6.3 10^3/uL (3.5-10.8)
[2020-07-07 06:27] LABS: Albumin 3.6 g/dL (3.2-5.2); Albumin/Globulin Ratio 1.6 (1-3); BUN/Creatinine Ratio 13.8 (8-20); Calcium 8.4 mg/dL (8.6-10.3); EGFR African American 96.3 (>60); EGFR Non-African American 79.6 (>60); Globulin 2.3 g/dL (2-4); Potassium 3.8 mmol/L (3.5-5.0); Total Bilirubin 0.6 mg/dL (0.2-1.0); Total Protein 5.9 g/dL (6.4-8.9)
[2020-07-07 07:45] VITALS: BP 125/53
== END 2020-07-07 12:48 | disposition home or self-care (01) | DRG 390 ==
LOC: ED 22:35 → SSU 07-06 05:07
PROVIDERS: ADMIT Student in an Organized Health Care Education/Training Program; ATTEND Hospitalist